=== PATIENT | female | born 1950 | race Caucasian/White ===

== ENCOUNTER → 2019-04-01 | Outpatient (CLI) | payer MEDICARE, OTHER ==
[~2019-04-01] MED LIST: COLACE 100100 MG/CAP PO; DULCOLAX STOOL100 MG PO; KLONOPIN 0.5MG0.5 MG PO; MASON NATURAL1000 MG PO; NORCO 325 MG-51 TAB PO; PERI-COLACE 501 TAB PO; PRIL40 PO; REQUIP 0.5MG0.5 MG PO; REQUIP0.25 MG PO
== END ==
LOC: COL.PUL 02-14 13:00
DX: R05 Cough (principal)

== ENCOUNTER → 2019-06-11 | Outpatient (CLI) | payer MEDICARE | LOC: COL.PUL 05-07 10:00 | DX: R05 Cough (principal) | CPT/HCPCS: J7674 ==

== ENCOUNTER 2020-02-27 10:26 | Emergency (ER) | payer MEDICARE ==
[~2020-02-27] VITALS: Ht 154.9 cm; Wt 70.5 kg
[2020-02-27 11:13] LABS: HEMOGLOBIN 12.8 g/dl (12.5-16.0); MEAN CELL VOLUME 93 fl (80.0-100.0); MEAN CORPUSCULAR HEMOGLOBIN 32 pg (27.0-31.0); MEAN CORPUSCULAR HGB CONC 35 g/dl (33.0-37.0); MEAN PLATELET VOLUME 9.8 fl (7.4-10.4); PLATELET COUNT 221 K/mm3 (130-400); RED BLOOD COUNT 3.96 M/mm3 (4.10-5.30)
[2020-02-27 11:28] LABS: HEMATOCRIT 36.7 % (37.0-47.0)
[2020-02-27] MEDS ORDERED: ZITHROMAX Z PA250 MG PO (11:33)
[2020-02-27 11:34] LABS: ALANINE AMINOTRANSFERASE 40 U/L (4-34); ALBUMIN 3.6 gm/dL (3.5-5.0); ALKALINE PHOSPHATASE 101 U/L (50-136); ANION GAP 7 mmol/L (7-16); AST,SGOT 71 U/L (15-37); BILIRUBIN,TOTAL 0.9 mg/dL (0.0-1.0); BLOOD UREA NITROGEN 13 mg/dL (7-17); CARBON DIOXIDE 28 mmol/L (22-30); CHLORIDE 100 mmol/L (98-107); GLUCOSE 100 mg/dL (74-106); POTASSIUM 3.3 mmol/L (3.4-5.0); SODIUM 135 mmol/L (137-145); TOTAL PROTEIN 6.8 gm/dL (6.4-8.2)
[2020-02-27 11:43] LABS: INR 1.1 (0.8-3.0); PROTHROMBIN TIME 12.5 SECONDS (9.7-12.8)
[2020-02-27 11:46] LABS: C-REACTIVE PROTEIN 14.5 mg/dL (0.0-0.9); TROPONIN-I < 0.012 ng/mL (0.000-0.035)
[2020-02-27] MEDS ORDERED: PREDNISONE20 MG PO (11:55)
[2020-02-27 12:04] LABS: BAND 2 % (0-10); LYMPHOCYTE 20 % (20.0-51.0); NEUTROPHILS 72 % (42.0-75.2)
[2020-02-27 12:05] LABS: PLATELET ESTIMATE NORMAL (NORMAL)
[2020-02-27 12:53] VITALS: BP 130/75; PULSE 89; TEMP 98.3
== END 2020-02-27 12:55 | disposition home or self-care (01) ==
LOC: COL.ER 10:26
PROVIDERS: Emergency Medicine
DX: U07.1 COVID-19 (principal); J12.89 Other viral pneumonia; Z90.710 Acquired absence of both cervix and uterus
CPT/HCPCS: J2930; J7030

== ENCOUNTER → 2021-12-09 | Outpatient (CLI) | payer MEDICARE ==
[~2021-12-09] MED LIST changes: +PREDNISONE20 MG PO; +ZITHROMAX Z PA250 MG PO
== END ==
LOC: MC.RAD 09:53
DX: R22.31 Localized swelling, mass and lump, right upper limb (principal)